=== PATIENT | female | born 1985 | race Caucasian/White ===

== ENCOUNTER 2016-04-24 22:34 | Emergency (ER) | payer MEDICAID ==
[2010-03-13 09:03] VITALS: BMI 20.8
== END 2016-04-25 01:40 | disposition home or self-care (01) ==
LOC: D.ER 22:34
DX: R00.2 Palpitations (principal); K21.9 Gastro-esophageal reflux disease without esophagitis

== ENCOUNTER 2016-05-27 11:02 | Emergency (ER) | payer MEDICAID ==
[2010-03-13 09:03] VITALS: BMI 20.8
[2016-05-27 17:58] LABS: BASOPHILS 0.2 % (0.0-2.0); EOSINOPHILS 0.2 % (0-7); HEMOGLOBIN 12.7 g/dL (12-16); IMMATURE GRANULOCYTES 0.3 % (0-5); LYMPHOCYTES 18.1 % (15-50); MCH 31.8 pg (26.0-34.0); MCHC 34.3 g/dL (31.0-37.0); MCV 92.7 fL (80.0-100.0); MEAN PLATELET VOLUME 9.7 fL (7.4-10.4); MONOCYTES 7.1 % (2-11); NEUTROPHILS 74.1 % (40-80); PLATELET COUNT 237 10x3/uL (130-400); RBC 3.99 10x6/uL (4.00-5.40); RDW 13.1 % (11.5-14.5); WBC 12.3 10x3/uL (4.8-10.8)
[2016-05-27 18:29] LABS: ALBUMIN 3.4 g/dL (3.4-5.0); ALKALINE PHOSPHATASE 45 U/L (46-116); ALT (SGPT) 20 U/L (10-68); BILIRUBIN - TOTAL 0.29 mg/dL (0.2-1.3); CALC OSMOLALITY 276 mosm/kg (275-300); CALCIUM 8.4 mg/dL (8.5-10.1); CARBON DIOXIDE 22.2 mmol/L (21.0-32.0); CHLORIDE - SERUM 104 mmol/L (98-107); CREATININE - SERUM 0.6 mg/dL (0.6-1.3); GLUCOSE 75 mg/dL (74-106); POTASSIUM - SERUM 3.8 mmol/L (3.5-5.1); PROTEIN - SERUM 7.1 g/dL (6.4-8.2); SODIUM 139 mmol/L (136-145); UREA NITROGEN 13 mg/dL (7-18); eGFR NON AFRICAN AMERICAN > 90 mL/min (90-120)
[2016-05-27 18:39] LABS: THYROID STIMULATING HORMONE 1.18 uIU/mL (0.36-3.74)
[2016-05-27 19:18] LABS: APPEARANCE CLEAR (CLEAR); BILIRUBIN NEGATIVE (NEGATIVE); COLOR YELLOW (YELLOW); GLUCOSE NEGATIVE (NEGATIVE); KETONE MODERATE mg/dL (NEGATIVE); LEUKOCYTE ESTERASE 1+ (NEGATIVE); NITRITE NEGATIVE (NEGATIVE); PROTEIN NEGATIVE (NEGATIVE); UROBILINOGEN NORMAL (NORMAL)
[2016-05-27 19:20] LABS: BACTERIA FEW /hpf (NONE SEEN); EPITHELIAL CELLS 0-5 /hpf (0-5); RED CELLS - URINE OCC /hpf (0-5)
== END 2016-05-27 19:01 | disposition home or self-care (01) ==
LOC: D.ER 11:02
PROVIDERS: Physician Assistant
DX: R00.2 Palpitations (principal); R42 Dizziness and giddiness; T76.21XA Adult sexual abuse, suspected, initial encounter; F41.9 Anxiety disorder, unspecified; M94.0 Chondrocostal junction syndrome [Tietze]; K21.9 Gastro-esophageal reflux disease without esophagitis

== ENCOUNTER → 2016-08-26 22:18 | Outpatient (CLI) | payer MEDICAID ==
[2010-03-13 09:03] VITALS: BMI 20.8
[2016-08-26 23:15] LABS: APPEARANCE HAZY (CLEAR); BILIRUBIN NEGATIVE (NEGATIVE); COLOR YELLOW (YELLOW); GLUCOSE NEGATIVE (NEGATIVE); KETONE NEGATIVE (NEGATIVE); LEUKOCYTE ESTERASE 1+ (NEGATIVE); NITRITE NEGATIVE (NEGATIVE); PH 5.5 (5.0-6.0); PROTEIN TRACE mg/dL (NEGATIVE); SPECIFIC GRAVITY 1.025 (1.005-1.020); UROBILINOGEN NORMAL (NORMAL)
[2016-08-26 23:20] LABS: EPITHELIAL CELLS 0-5 /hpf (0-5)
[2016-08-26 23:21] LABS: BACTERIA FEW /hpf (NONE SEEN); CALCIUM OXALATE CRYSTALS 25-50 /hpf (NONE SEEN); GRANULAR CAST RARE /lpf (NONE SEEN); HYALINE CAST OCC /lpf (NONE SEEN); MUCUS <1+ /lpf (NONE SEEN); YEAST >1+ WITH HYPHAE /hpf (NONE SEEN)
[2016-08-26 23:23] LABS: UDS - AMPHET NEGATIVE QUAL (NEGATIVE); UDS - BARB NEGATIVE QUAL (NEGATIVE); UDS - BENZO NEGATIVE QUAL (NEGATIVE); UDS - COCAINE NEGATIVE QUAL (NEGATIVE); UDS - METH NEGATIVE QUAL (NEGATIVE); UDS - OPIATE NEGATIVE QUAL (NEGATIVE); UDS - PCP NEGATIVE QUAL (NEGATIVE); UDS - THC NEGATIVE QUAL (NEGATIVE)
== END | disposition home or self-care (01) ==
LOC: D.LDO 22:18
PROVIDERS: Obstetrics & Gynecology
DX: O46.92 Antepartum hemorrhage, unspecified, second trimester (principal); Z3A.27 27 weeks gestation of pregnancy; R10.30 Lower abdominal pain, unspecified

== ENCOUNTER → 2016-10-09 16:26 | Outpatient (CLI) | payer MEDICAID ==
[2010-03-13 09:03] VITALS: BMI 20.8
[2016-10-09 17:14] LABS: APPEARANCE CLEAR (CLEAR); BILIRUBIN NEGATIVE (NEGATIVE); COLOR STRAW (YELLOW); GLUCOSE NEGATIVE (NEGATIVE); KETONE NEGATIVE (NEGATIVE); LEUKOCYTE ESTERASE NEGATIVE (NEGATIVE); NITRITE NEGATIVE (NEGATIVE); PROTEIN NEGATIVE (NEGATIVE); UROBILINOGEN NORMAL (NORMAL)
== END | disposition home or self-care (01) ==
LOC: D.LDO 16:26
PROVIDERS: Obstetrics & Gynecology
DX: O26.899 Other specified pregnancy related conditions, unspecified trimester (principal); M54.5 Low back pain; R10.30 Lower abdominal pain, unspecified; Z87.442 Personal history of urinary calculi

== ENCOUNTER → 2016-10-25 21:24 | Outpatient (CLI) | payer MEDICAID ==
[2010-03-13 09:03] VITALS: BMI 20.8
[2016-10-25 22:20] LABS: APPEARANCE CLEAR (CLEAR); BILIRUBIN NEGATIVE (NEGATIVE); COLOR YELLOW (YELLOW); GLUCOSE NEGATIVE (NEGATIVE); KETONE SMALL mg/dL (NEGATIVE); LEUKOCYTE ESTERASE 1+ (NEGATIVE); NITRITE NEGATIVE (NEGATIVE); PROTEIN NEGATIVE (NEGATIVE); RED CELLS - URINE 0-5 /hpf (0-5); SPECIFIC GRAVITY 1.015 (1.005-1.020); UROBILINOGEN NORMAL (NORMAL)
== END | disposition home or self-care (01) ==
LOC: D.LDO 21:24
PROVIDERS: Obstetrics & Gynecology
DX: Z34.83 Encounter for supervision of other normal pregnancy, third trimester (principal); Z3A.34 34 weeks gestation of pregnancy; M54.9 Dorsalgia, unspecified

== ENCOUNTER → 2016-11-08 03:14 | Outpatient (CLI) | payer MEDICAID ==
[2010-03-13 09:03] VITALS: BMI 20.8
[~2016-11-08 03:14] MED LIST: BUSPAR5 MG PO; FERROUS SULFAT325 MG PO; PRENATAL COMPLE1 TAB PO; TYLENOL PM1 TAB PO; ZANTAC150 MG; ZANTAC150 MG PO
== END | disposition home or self-care (01) ==
LOC: D.LDO 03:14
DX: Z34.83 Encounter for supervision of other normal pregnancy, third trimester (principal); Z3A.36 36 weeks gestation of pregnancy

== ENCOUNTER 2016-11-13 23:40 | Outpatient (CLI) | payer MEDICAID ==
[2010-03-13 09:03] VITALS: BMI 20.8
[2016-11-14 00:09] LABS: APPEARANCE CLEAR (CLEAR); BACTERIA NONE SEEN /hpf (NONE SEEN); BILIRUBIN NEGATIVE (NEGATIVE); COLOR YELLOW (YELLOW); EPITHELIAL CELLS 0-5 /hpf (0-5); GLUCOSE NEGATIVE (NEGATIVE); KETONE NEGATIVE (NEGATIVE); LEUKOCYTE ESTERASE 1+ (NEGATIVE); NITRITE NEGATIVE (NEGATIVE); PROTEIN NEGATIVE (NEGATIVE); RED CELLS - URINE NONE SEEN /hpf (0-5); UROBILINOGEN NORMAL (NORMAL)
== END 2016-11-14 00:55 | disposition home or self-care (01) ==
LOC: D.LD 23:40 → D.LDO 23:40
PROVIDERS: Obstetrics & Gynecology
DX: Z34.83 Encounter for supervision of other normal pregnancy, third trimester (principal); Z3A.36 36 weeks gestation of pregnancy; R10.30 Lower abdominal pain, unspecified

== ENCOUNTER → 2016-11-20 01:29 | Outpatient (CLI) | payer MEDICAID ==
[2010-03-13 09:03] VITALS: BMI 20.8
[2016-11-20 02:24] LABS: UDS - AMPHET NEGATIVE QUAL (NEGATIVE); UDS - BARB NEGATIVE QUAL (NEGATIVE); UDS - BENZO NEGATIVE QUAL (NEGATIVE); UDS - COCAINE NEGATIVE QUAL (NEGATIVE); UDS - METH NEGATIVE QUAL (NEGATIVE); UDS - OPIATE NEGATIVE QUAL (NEGATIVE); UDS - PCP NEGATIVE QUAL (NEGATIVE); UDS - THC NEGATIVE QUAL (NEGATIVE)
[2016-11-20 02:40] LABS: APPEARANCE CLEAR (CLEAR); BILIRUBIN NEGATIVE (NEGATIVE); COLOR YELLOW (YELLOW); GLUCOSE NEGATIVE (NEGATIVE); KETONE NEGATIVE (NEGATIVE); LEUKOCYTE ESTERASE 2+ (NEGATIVE); NITRITE NEGATIVE (NEGATIVE); PROTEIN NEGATIVE (NEGATIVE); UROBILINOGEN NORMAL (NORMAL)
[2016-11-20 02:41] LABS: BACTERIA FEW /hpf (NONE SEEN); EPITHELIAL CELLS 0-5 /hpf (0-5); MUCUS <1+ /lpf (NONE SEEN); RED CELLS - URINE 0-5 /hpf (0-5)
== END ==
LOC: D.LDO 01:29
PROVIDERS: Obstetrics & Gynecology
DX: Z34.83 Encounter for supervision of other normal pregnancy, third trimester (principal); Z3A.37 37 weeks gestation of pregnancy

== ENCOUNTER → 2016-11-21 15:16 | Outpatient (CLI) | payer MEDICAID ==
[2010-03-13 09:03] VITALS: BMI 20.8
[2016-11-21 16:45] LABS: APPEARANCE CLEAR (CLEAR); BILIRUBIN NEGATIVE (NEGATIVE); COLOR YELLOW (YELLOW); GLUCOSE NEGATIVE (NEGATIVE); KETONE NEGATIVE (NEGATIVE); LEUKOCYTE ESTERASE 1+ (NEGATIVE); NITRITE NEGATIVE (NEGATIVE); PROTEIN NEGATIVE (NEGATIVE); SPECIFIC GRAVITY 1.015 (1.005-1.020); UDS - AMPHET NEGATIVE QUAL (NEGATIVE); UDS - BARB NEGATIVE QUAL (NEGATIVE); UDS - BENZO NEGATIVE QUAL (NEGATIVE); UDS - COCAINE NEGATIVE QUAL (NEGATIVE); UDS - METH NEGATIVE QUAL (NEGATIVE); UDS - OPIATE NEGATIVE QUAL (NEGATIVE); UDS - PCP NEGATIVE QUAL (NEGATIVE); UDS - THC NEGATIVE QUAL (NEGATIVE); UROBILINOGEN NORMAL (NORMAL)
[2016-11-21 16:52] LABS: BACTERIA FEW /hpf (NONE SEEN); EPITHELIAL CELLS 0-5 /hpf (0-5)
== END | disposition home or self-care (01) ==
LOC: D.LDO 15:16 → D.ER 15:16 → EDSTATUS 15:31
PROVIDERS: Obstetrics & Gynecology
DX: Z34.83 Encounter for supervision of other normal pregnancy, third trimester (principal); Z3A.37 37 weeks gestation of pregnancy; R00.0 Tachycardia, unspecified

== ENCOUNTER 2016-11-29 01:22 | Inpatient (IN) | payer MEDICAID ==
[~2016-11-29] VITALS: Ht 154.9 cm; Wt 68.2 kg
[2016-11-29 02:10] LABS: HEMATOCRIT 35.4 % (36.0-48.0); HEMOGLOBIN 11.9 g/dL (12-16); MCH 29.7 pg (26.0-34.0); MCHC 33.6 g/dL (31.0-37.0); MCV 88.3 fL (80.0-100.0); MEAN PLATELET VOLUME 9.8 fL (7.4-10.4); RBC 4.01 10x6/uL (4.00-5.40); RDW 15.5 % (11.5-14.5); WBC 11.3 10x3/uL (4.8-10.8)
[2016-11-29 03:37] VITALS: BP 136/83; Ht 154.9 cm; Wt 68.2 kg
--- NOTE | 2016-11-29 13:30 | NUR ---
RINGS CALL LIGHT AND STATES NEEDS TO VOID. ABLE TO LIFT BOTH LEGS AT HIPS. AMBULATED TO BATHROOM- VOIDED 1100 CC. RUMA CARE DONE USING BETADINE AND WARM WATER.
--- NOTE | 2016-11-29 13:43 | NUR ---
REQUESTED IBUPROFEN FOR RELIEF OF 4/10 CRAMPING AFTER WHEELCHAIR TRANSFER TO ROOM 1257. MOTRIN 600 MG GIVEN FOR RELIEF. ASSISTED UP TO BATHROOM TO VOID. TOLERATED WELL. LIEN SMALL. IN ROOM. FOB PRESENT. ORIENTED TO ROOM AND CALL LIGHT. FRESH WATER GIVEN. FRESH ICE PACK TO PERINEUM. SIDE RAILS UP X 2, CALL LIGHT IN REACH. TO CALL IF ANYTHING IS NEEDED. VERBALIZED UNDERSTANDING.
--- NOTE | 2016-11-29 14:48 | NUR ---
C/O 09/20 ABDOMINAL CRAMPING. DISCUSSED PAIN MANAGEMENT OPTIONS. DEMEROL 50 MG GIVEN PO FOR PAIN. EXPLAINED TO PT THIS MAY CAUSE DROWSINESS AND TO CALL FOR ASSISTANCE TO BATHROOM. VERBALIZED UNDERSTANDING. SIDE RAILS UP X 2. CALL LIGHT PLACED IN REACH. INFANT IN ARMS. FOB IN ROOM.
--- NOTE | 2016-11-29 15:36 | NUR ---
TO ROOM FOR PAIN REASSESSMENT. PT CURRENTLY SLEEPING ON LEFT SIDE. RESPIRATIONS EVEN. SIDERAILS UP X2, CALL LIGHT IN REACH. IN NURSERY.
--- NOTE | 2016-11-29 17:19 | NUR ---
AWAKE, SITTING UP IN BED . SAYS HER PAIN IS BETTER 2/10. DENIES NEEDING ANYTHING AT THIS TIME. VISITORS IN ROOM. CALL LIGHT IN REACH. TO CALL IF ANYTHING IS NEEDED.
--- NOTE | 2016-11-29 19:08 | NUR ---
RN RESUMING CARE OF PT. BEDSIDE REPORT REC'D FROM Je MASON RN. PT REC'D SITTING IN HIGH FOWLERS POSITION. REPORTS THAT SHE IS HAVING "SOME ABD CRAMPING THAT IS PRETTY BAD RIGHT NOW BUT I JUST FINISHED NURSING." EMAR CHECKED, CAN HAVE MOTRIN AT 1945, EXPLAINED THIS TO PT, VERBALIZED UNDERSTANDING AND REQUESTS MOTRIN WHEN SHE CAN HAVE, DEMEROL OFFERED, PT STATES THAT SHE WILL WAIT UNTIL CLOSER TO BEDTIME D/T HAVING FAMILY COME TO VISIT AND MED MAKING HER DROWSY. FAMILY TO ROOM. PT REQUESTS THAT ASSESSMENT BE COMPLETED ONCE FAMILY MEMBERS LEAVE. INSTRUCTED TO USE CL FOR NEEDS, VERBALIZED UNDERSTANDING. S/O AT BEDSIDE. NBN RN TO ROOM DISCUSSING PLAN OF CARE FOR NB. BED IN LOW POSITION WITH UPPER SIDE RAILS RAISED X2. CL AND PHONE WITHIN REACH. WILL CONT TO MONITOR AND ASSIST PRN.
[2016-11-29 19:49] VITALS: BP 117/74
--- NOTE | 2016-11-29 19:49 | NUR ---
SHIFT ASSESSMENT COMPLETED. VSS. FUNDUS FIRM, U2 WITH SMALL AMT RUBRA LOCHIA, NO CLOTS PRESENT. PAIN 4/10, INTERMITTENT ABD CRAMPING, MOTRIN GIVEN. FAMILY MEMBERS REMAIN AT BEDSIDE VISITING WITH PT. MOM, TUXS, DERMAPLAST GIVEN. MEDICATION USES AND SIDE EFFECTS DISCUSSED. VERBALIZED UNDERSTANDING. PT STATES THAT SHE IS VOIDING WITHOUT DIFFICULTY AND HAS BEEN PASSING FLATUS. RESPIRATIONS CLEAR AND EQUAL BILATERALLY, UNLABORED. S/O AT BEDSIDE AND SUPPORTIVE OF PT. ICE WATER GIVEN. MILD BILATERAL LABIAL SWELLING NOTED, ICE PACK GIVEN. PT UP TO SHOWER AT THIS TIME. STATES THAT FAMILY MEMBERS WILL BE IN ROOM WITH . INSTRUCTED CLERICAL WAREHOUSE WORKER LIGHT USE IN BATHROOM IF NEEDED, VERBALIZED. BED IN LOW POSITION WITH UPPER SIDE RAILS RAISED X2. CL AND PHONE WITHIN REACH. WILL CONT TO MONITOR AND ASSIST PRN.
--- NOTE | 2016-11-29 20:43 | NUR ---
PAIN REASSESSMENT COMPLETED. 05/23. PT OUT OF SHOWER, IN HIGH FOWLERS POSITION, BONDING WITH INFANT. REQUESTS SNACK, SANDWICH TRAY PROVIDED. S/O REMAINS AT BEDSIDE SUPPORTIVE OF PT. DENIES ADDITIONAL NEEDS. BED IN LOW POSITION WITH UPPER SIDE RAILS RAISED X2. CL AND PHONE WITHIN REACH. WILL CONT TO MONITOR.
--- NOTE | 2016-11-29 21:35 | NUR ---
CALLED TO ROOM VIA CL. PT REQUESTS DEMEROL, STATES SHE JUST FINISHED NURSING INFANT, CRAMPING 09/20. DEMEROL GIVEN PER REQUEST. IN NBN AT THIS TIME. NBN PAPERWORK TAKEN TO NBN PER PT REQUEST. PT STATES THAT SHE IS GOING TO TRY TO TAKE A NAP BEFORE INFANT IS DUE TO NURSE AGAIN. S/O REMAINS AT BEDSIDE. ICE WATER GIVEN. BED IN LOW POSITION WITH UPPER SIDE RAILS RAISED X2. CL AND PHONE WITHIN PT REACH. DENIES ADDITIONAL NEEDS. WILL CONT TO MONITOR AND ASSIST PRN.
--- NOTE | 2016-11-29 22:06 | NUR ---
PAIN REASSESSMENT COMPLETED. PT RESTING WTIH EYES CLOSED UPON RN OPENING DOOR, PT OPENED EYES. PAIN 04/22. NBN RN TO BEDSIDE WITH INFANT FOR PT TO BREAST FEED. DENIES ADDITIONAL NEEDS AT THIS TIME. S/O RESTING ON COUCH AT BEDSIDE. BED IN LOW POSITION WITH UPPER SIDE RAILS RAISED X2. CL AND PHONE WITHIN REACH. WILL CONT TO MONITOR AND ASSIST PRN.
--- NOTE | 2016-11-29 22:18 | NUR ---
PT CALLS VIA CL. RN TO BEDSIDE. PT REPORTS THAT SHE FELT AN INCREASED IN BLEEDING AND POSSIBLE CLOT PASS WHEN SHE BEGAN NURSING . HALF DOLLAR SIZED CLOT NOTED TO PERIPAD. FUNDUS REMAINS FIRM, U2 WITH MODERATE AMT RUBRA LOCHIA. EDUCATED THAT IT IS NORMAL TO PASS CLOTS, VERBALIZED UNDERSTANDING. DENIES ADDITIONAL NEEDS. REPOSITIONED TO HIGH FOWLERS, PT POSITIONED INFANT TO CONTINUE NURSING, GOOD LATCH AND SUCK NOTED FROM INFANT. BED IN LOW POSITION WITH UPPER SIDE RAILS RAISED X2. CL AND PHONE WITHIN REACH.
--- NOTE | 2016-11-30 00:06 | NUR ---
RN TO BEDSIDE FOR ROUNDS. PT LAYING ON RIGHT SIDE RESTING WITH EYES CLOSED. RESPIRATIONS REGULAR AND UNLABORED, NO S/S OF DISTRESS NOTED. S/O ON COUCH AT BEDSIDE RESTING. BED IN LOW POSITION WITH UPPER SIDE RAILS RAISED X2. CL AND PHONE WITHIN REACH. WILL CONT TO MONITOR AND ASSIST PRN.
--- NOTE | 2016-11-30 01:56 | NUR ---
RN TO BEDSIDE TO BRING INFANT BACK TO NBN PER PT REQUEST. DENIES NEEDS AND PAIN AT THIS TIME. S/O REMAINS IN ROOM RESTING ON COUCH. BED IN LOW POSITION WITH UPPER SIDE RAILS RAISED X2. CL AND PHONE WITHIN REACH. WILL CONT TO MONITOR AND ASSIST PRN.
--- NOTE | 2016-11-30 04:06 | NUR ---
RN TO BEDSIDE FOR ROUNDS. PT LAYING ON LEFT SIDE RESTING WITH EYES CLOSED. RESPIRATIONS REGULAR AND UNLABORED, NO S/S OF DISTRESS NOTED. S/O REMAINS AT BEDSIDE RESTING ON COUCH. BED IN LOW POSITION WITH UPPER SIDE RAILS RAISED X2. CL AND PHONE WITHIN REACH. IN NBN AT THIS TIME. WILL CONT TO MONITOR AND ASSIST PRN.
--- NOTE | 2016-11-30 05:53 | NUR ---
RN TO BEDSIDE FOR ROUNDS. PT BONDING WITH INFANT. PAIN 07/21, ABD CRAMPING, STATES THAT JUST COMPLETED NURSING. REQUESTS MOTRIN, GIVEN PER REQUEST. ICE WATER GIVEN. S/O REMAINS IN ROOM RESTING ON COUCH. DENIES ADDITIONAL NEEDS. BED IN LOW POSITION WITH UPPER SIDE RAILS RAISED X2. CL AND PHONE WITHIN REACH. WILL CONT TO MONITOR AND ASSIST PRN.
--- NOTE | 2016-11-30 06:32 | NUR ---
PAIN REASSESSMENT COMPLETED. PAIN 05/23. PT REMAINS IN HIGH FOWLERS POSITION BONDING WITH . DENIES NEEDS AT THIS TIME. BED IN LOW POSITION WITH UPPER SIDE RAILS RAISED X2. CL AND PHONE WITHIN REACH.
--- NOTE | 2016-11-30 07:41 | NUR ---
SITTING UP ON EDGE OF BED EATING BREAKFAST. INFANT IN ARMS. FOB IN ROOM. DENIES NEEDING ANYTHING AT THIS TIME. WILL COMPLETE SHIFT ASSESSMENT AFTER BREAKFAST.
[2016-11-30 08:31] VITALS: BP 118/71
[2016-11-30 08:39] LABS: HEMATOCRIT 35.6 % (36.0-48.0); MCH 29.9 pg (26.0-34.0); MCHC 33.7 g/dL (31.0-37.0); MCV 88.6 fL (80.0-100.0); MEAN PLATELET VOLUME 10.2 fL (7.4-10.4); RBC 4.02 10x6/uL (4.00-5.40); RDW 15.9 % (11.5-14.5)
--- NOTE | 2016-11-30 08:50 | NUR ---
SHIFT ASSSESSMENT WAS COMPLETED. REQUESTED PAIN MEDICATION FOR 6/10 ABD CRAMPING AFTER . ALSO NEEDS TO VOID. DEMEROL 50 MG GIVEN PO. INSTRUCTED TO VOID TO ALSO HELP DECREASE CRAMPING. INFANT TO NURSERY. VISITOR X 1 IN ROOM. DENIES NEEDING ANYTHING ELSE. PLANS TO NAP. SIDERAILS UP X 2, CALL LIGHT IN REACH. TO CALL IF ANYTHING IS NEEDED. VERBALIZED UNDERSTANDING.
--- NOTE | 2016-11-30 09:52 | NUR ---
EYES CLOSED, RESPIRATIONS EVEN. LAYING ON RIGHT SIDE. NOT AROUSED AT THIS TIME. SIDERAILS UP X 2 CALL LIGHT IN REACH. INFANT IN NURSERY.
--- NOTE | 2016-11-30 10:45 | NUR ---
LAYING ON RIGHT SIDE. EYES CLOSED. RESPIRATIONS EVEN. IN NURSERY. VISITOR ON COUCH STATES "SHE'S SLEEPING". SIDE RAILS UP X 2. PT NOW AROUSED AT THIS TIME, WILL ALLOW TO SLEEP.
--- NOTE | 2016-11-30 11:40 | NUR ---
CALLED TO ROOM BY PT. REQUESTED REMOVAL OF SALINE LOCK. HEMOGRAM WNL. SALINE LOCK REMOVED WITH TIP INTACT. 1/10 ON PAIN SCALE. STATES "I THINK I SLEPT ABOUT TWO HOURS". AND VISITORS IN ROOM. DENIES NEEDING ANYTHING ELSE AT THIS TIME. TO CALL IF ANYTHING IS NEEDED.
--- NOTE | 2016-11-30 13:00 | NUR ---
SITTING UP IN BED. FINISHED LUNCH. IN ROOM WITH VISITOR. DENIES NEEDING ANYTHING AT THIS TIME. CALL LIGHT IN REACH.
[2016-11-30 14:15] VITALS: BP 112/64
--- NOTE | 2016-11-30 14:16 | NUR ---
INFANT AT BREAST. VS DONE. PT DENIES NEEDS. PT STATES THAT SHE HAS SOME CRAMPING THAT INCREASES WHILE INFANT IS AT BREAST.CURRENTLY RATES PAIN A 5 ON SCALE OF 0-10 BUT DENIES WANTING PAIN MEDICATION AT THIS TIME.
--- NOTE | 2016-11-30 15:59 | NUR ---
SLEEPING ON LEFT SIDE. RESPIRATIONS EVEN. INFANT IN NURSERY. SIDE RAILS UP X 2, CALL LIGHT ON BED.
--- NOTE | 2016-11-30 17:23 | NUR ---
FINISHED . REQUESTED IBUPROFEN FOR RELIEF OF 5/10 CRAMPING. MOTRIN 600 MG GIVEN PO FOR RELIEF. INSTRUCTED THAT SHE CAN HAVE DEMEROL IF SHE NEEDS IT. VERBALIZED UNDERSTANDING. ALSO CO OF RIGHT NIPPLE TENDERNESS STATES "HE SUCKS REALLY HARD ON THAT SIDE". BREASTSHIELD OBTAINED AND INSTRUCTED ON USE OF BREASTSHIELD TO PROTECT NIPPLE. ALSO LANOLIN OITMENT GIVEN WITH INSTRUCTIONS. DISCUSSED EXPRESSION OF BREAST MILK AND TO AIR DRY ON NIPPLE AND AREOLA BETWEEN FEEDINGS. NO ADDITIONAL REQUESTS AT THIS TIME. TOOK SHOWER EARLIER- AD TRISTON. INSTRUCTED TO CALL WHEN READY FOR LINENS TO BE CHANGE. REGULAR DIET AT BEDSIDE. AND VISITORS IN ROOM.
--- NOTE | 2016-11-30 19:18 | NUR ---
RN TO BEDSIDE. PT . PLAN OF CARE DISCUSSED WITH PT. ICE WATER GIVEN PAIN 2/10 AT THIS TIME. DENIES ADDITIONAL. WILL CALL RN USING CL WHEN FINISHED NURSING FOR SHIFT ASSESSMENT. BED IN LOW POSITION WITH UPPER SIDE RAILS RAISED X2. CL AND PHONE WITHIN REACH. WILL CONT TO MONITOR AND ASSIST PRN.
--- NOTE | 2016-11-30 20:21 | NUR ---
RN TO BEDSIDE. PT CONTINUING TO BREAST FEED. DENIES NEEDS. WILL CALL RN WHEN FINISHES NURSING FOR SHIFT ASSESSMENT. BED REMAINS IN LOW POSITION WITH UPPER SIDE RAILS RAISED X2. CL AND PHONE WITHIN REACH. WILL CONT TO MONITOR AND ASSIST PRN.
[2016-11-30 20:50] VITALS: BP 117/70
--- NOTE | 2016-11-30 20:50 | NUR ---
PT CALLS VIA CL. REPORTS THAT SHE IS FINISHED NURSING . SHIFT ASSESSMENT COMPLETED. VSS. FUNDUS FIRM, U2 WITH SMALL AMT RUBRA LOCHIA TO PERIPAD, NO CLOTS. PT REPORTS LOCHIA IS LESSENED FROM PREVIOUS SHIFT. PAIN 6/10, ABD CRAMPING, DEMEROL GIVEN PER REQUEST. ICE WATER GIVEN. S/O NOW AT BEDSIDE. PT STATES THAT SHE IS VOIDING WITHOUT DIFFICULTY AND PASSING FLATUS, STATES SHE HAS NOT HAD BM YET, MILK OF MAG GIVEN. INSTRUCTED ON S/S OF INFECTION TO REPORT TO MD, VERBALIZES UNDERSTANDING. BOWELS SOUNDS ACTIVE AND PRESENT X4 QUADRANTS, BREATH SOUNDS CLEAR AND EQUAL BILATERALLY THROUGH ALL LUNG FEILDS. BROUGHT BACK TO NBN BY RN PER PT REQUEST. DENIES ADDITIONAL NEEDS. BED IN LOW POSITION WITH UPPER SIDE RAILS X2. CL AND PHONE WITHIN REACH. WILL CONT TO MONITOR AND ASSIST PRN.
--- NOTE | 2016-11-30 21:35 | NUR ---
PAIN REASSESSMENT COMPLETED. PT RESTING WITH EYES CLOSED. RESPIRATIONS REGULAR AND UNLABORED, NO S/S OF DISTRESS NOTED. S/O ON COUCH AT BEDSIDE WATCHING TV, DENIES NEEDS. BED IN LOW POSITION WITH UPPER SIDE RAILS RAISED X2. CL AND PHONE WITHIN REACH. WILL CONT TO MONITOR AND ASSIST PRN.
--- NOTE | 2016-11-30 22:30 | NUR ---
RN TO BEDSIDE WITH . INFANT BAND MATCHED WITH MOTHER'S. PT DENIES NEEDS AT THIS TIME. ICE WATER GIVEN. S/O RESTING ON COUCH AT BEDSIDE. BED IN LOW POSITION WITH UPPER SIDE RAILS RAISED X2. CL AND PHONE WITHIN REACH. WILL CONT TO MONITOR AND ASSIST PRN.
--- NOTE | 2016-12-01 00:10 | NUR ---
RN TO BEDSIDE FOR ROUNDS. PT AT THIS TIME. DENIES PAIN AND NEEDS. S/O RESTING ON COUCH AT PT BEDSIDE. BED IN LOW POSITION WITH UPPER SIDE RAILS RAISED X2. CL AND PHONE WITHIN REACH. WILL CONT TO MONITOR AND ASSIST PRN.
--- NOTE | 2016-12-01 01:36 | NUR ---
INFANT TAKEN TO PT BY RN. ARMBAND MATCHED. HANDED TO PT WITH GOOD LATCH, SUCK, AND SWALLOW REFLEX NOTED. PT DENIES PAIN/NEEDS AT THIS TIME. ICE WATER GIVEN. BED IN LOW POSITION WITH UPPER SIDE RAILS RAISED X2. CL AND PHONE WITHIN REACH. S/O REMAIN ON COUCH AT BEDSIDE RESTING. WILL CONT TO MONITOR AND ASSESS PRN.
--- NOTE | 2016-12-01 03:18 | NUR ---
RN TO BEDSIDE FOR ROUNDS. PT AT THIS TIME. PAIN 6/10 ABD CRAMPING. PT REQUEST MOTRIN, GIVEN PER REQUEST. ICE WATER GIVEN. DENIES ADDITIONAL NEEDS. S/O REMAINS AT BEDSIDE RESTING ON COUCH. BED IN LOW POSITION WITH UPPER SIDE RAILS RAISED X2. CL AND PHONE WITHIN REACH. WILL CONT TO MONITOR AND ASSIST PRN.
--- NOTE | 2016-12-01 04:03 | NUR ---
PAIN REASSESSMENT COMPLETE. PT LAYING ON RIGHT SIDE RESTING WITH EYES CLOSED. RESPIRATIONS REGULAR AND UNLABORED, NO S/S OF DISTRESS NOTED. S/O REMAINS ON COUCH AT BEDSIDE RESTING. BED IN LOW POSITION WITH UPPER SIDE RAILS RAISED X2. CL AND PHONE WITHIN REACH. WILL CONT MONITOR AND ASSIST PRN.
[2016-12-01] MEDS ORDERED: IBUPROFEN600 MG PO (08:43)
[2016-12-01 09:30] VITALS: BP 124/80
--- NOTE | 2016-12-01 09:33 | NUR ---
Jael Hurst 12/01/16 LE@ 8:15 S: Patient states is going good. O: Patient lying on her side in bed . Observed latching for feeding sucking in a rocking motion, mouth 140 degrees, appears content, and body turned more upright verses tummy to tummy. FOB in room speaking with staff regarding certificate. Recommend turning baby tummy to tummy, at mother request, gently turned baby for patient. Asked Nalini how is going, any problems or concerns, sore nipples? States her nipples are sore but is going great, her youngest is 6, like starting over. Observed removing his self-off the breast, patient nipples do look red at the tip, possible due to how is latching. Asked how did feeding go last night, was fed in the side lying down position? Patient states yes. Explained how to verify infant is latched correctly turn tummy to tummy, nose opposite of nipple, gently support infant head, and allow to self-latch. Possible reason for sore nipples is because of infant latch. Verifying infant is latched correctly for every feeding will prevent sore nipples, she may apply lanolin to the breast following every feeding, it is safe for to latch with lanolin on the breast. It's normal for breastfed babies to eat often, feed infant on demand when showing feeding cues (explained feeding cues), may eat every 2 hours during the day and every 3-4 hours at night. in the beginning takes time and patience in the beginning. Placing to the breast for every feeding will help with establishing your milk supply. Provided and explained handout on feeding cues, growth spurs, what to expect the first week, positions, waking a sleeping baby, engorgement, and benefits of skin to skin. Asked if any questions, concerns, or needs all declined, will follow up. Patient continues to work with staff member on signing certificate. A: Patient appears confident with . P: Continue to support exclusively Vinicio Soria CLC
--- NOTE | 2016-12-01 09:40 | NUR ---
ABDOMEN PALPATES SOFT, FUNDUS FIRM, U/U, SCANT RUBRA LOCHIA, NO CLOTS. APPROX 2 INCH SCAR NOTED TO LEFT LOWER/SUPRAPUBIC/MONS AREA, NO REDNESS, SWELLING OR BULGING NOTED. PT REPORTS THIS IS WHERE SHE HAD HER HERNIA REPAIR SURGERY DONE, BY LAURA GUADARRAMA 6 YEARS AGO. PT DENIES N/V, DENIES SOB OR DIFFICULTY BREATHING. PT REPORTS PASSING GAS, BOWELS SOUND ACTIVE X 4.
--- NOTE | 2016-12-01 09:45 | NUR ---
DISCHARGE INSTRUCTIONS EXPLAINED TO PT AND SIG OTHER. PRESCRIPTION FOR MOTRIN GIVEN TO PT, ALONG WITH APPT CARD, AND INSTRUCTION SHEETS. PT DENIES QUESTIONS. THEN STATES "I DID FORGET TO ASK DR. VALLADARES ABOUT MY HERNIA WHEN SHE CAME BY THIS MORNING. IT FEELS LIKE IT IS COMING APART AGAIN. DR. GRIGGS FIXED IT ABOUT 6 YEARS AGO, AND IT HAS BEEN HURTING FOR THE LAST 2 MONTHS. I HAVE BEEN TALKING TO DR. VALLADARES ABOUT THIS ALREADY". INFORMED PT I WOULD REPORT THIS TO DR. VALLADARES.
--- NOTE | 2016-12-01 09:55 | NUR ---
PHONE CALL MADE TO DR. VALLADARES, REPORT GIVEN TO MD THAT PT IS C/O PAIN IN LOWER LEFT SUPRAPUBIC/MONS AREA. PT REPORTS "I REALLY FEEL LIKE MY OLD HERNIA IS COMING APART AGAIN". PT REPORTS SHE HAS BEEN HURTING IN THIS AREA FOR ABOUT 2 MONTHS, AND STATES DR. VALLADARES IS AWARE OF THIS. PT STATES "I JUST FORGOT TO MENTION IT TO DR. VALLADARES WHEN SHE CAME BY THIS MORNING". DR. VALLADARES RECOMMENDS THAT PT WEAR AN ABD BINDER, LOW, AND TO KEEP FOLLOW UP APPT WITH DR. VALLADARES.
--- NOTE | 2016-12-01 12:00 | NUR ---
SIG OTHER AT DESK, REQUESTS ICE WATER FOR PT, SERVED. DIETARY HAS SERVED LUNCH TRAY. PT DENIES OTHER NEEDS AT THIS TIME. SR UP X2, CALL LIGHT AND PHONE WITHIN REACH.
--- NOTE | 2016-12-01 14:00 | NUR ---
PT OFF UNIT BY WHEELCHAIR WITH INFANT IN [place]SE[place], TAKEN TO PRIVATE VEHICLE BY VOLUNTEER.
[2016-12-02 03:10] LABS: RAPID PLASMA REAGIN Non Reactive (Non Reactive)
== END 2016-12-01 14:00 | disposition home or self-care (01) | DRG 775 ==
LOC: D.LD 01:22
PROVIDERS: ADMIT Obstetrics & Gynecology
PROC: 10E0XZZ Delivery of Products of Conception, External Approach (ICD-10-PCS; principal; 2016-11-29)
DX: O99.824 Streptococcus B carrier state complicating childbirth (principal); Z3A.39 39 weeks gestation of pregnancy; Z37.0 Single live birth